=== PATIENT | female | born 1995 | race Caucasian/White ===

== ENCOUNTER 2018-04-19 13:59 | Emergency (ER) | payer OTHER ==
[2018-04-19 14:24] VITALS: TEMP 98; BMI 19.8
--- NOTE | 2018-04-19 14:25 | PDOC ---
Rapid Medical Evaluation Chief Complaint: Blood Sugar Problem Time Seen by Provider: 04/19/18 14:22 Medical Evaluation: 04/19/18 14:22 I have performed a brief in-person evaluation of this patient. The patient presents with a chief complaint of: malfunctioning diabetic pump today, attempted to give herself insulin and states machine read "no delivery", checked FS afterwards, was 433. Feels weak and nauseous, no abd pain. No h/o DKA. States she changes insertion site every 3 days, last time today Pertinent physical exam findings:Unremarkable I have ordered the following:labs/ua The patient will proceed to the ED for further evaluation Discharge Disposition - Diagnosis Weakness - Referrals - Patient Instructions - Post Discharge Activity
--- NOTE | 2018-04-19 14:42 | PDOC ---
History of Present Illness - General Chief Complaint: Blood Sugar Problem Stated Complaint: BLOOD SUGAR PROBLEM Time Seen by Provider: 04/19/18 14:22 - History of Present Illness Initial Comments: The patient is a 23F w/ a history of DM who presents for evaluation of a dysfunctional diabetic pump today and a home FS of 433. She reports that she was in class when she noticed an error message from her pump that stated that it wasn't delivering properly. She endorses associated generalized weakness, nausea, NBNB vomiting x3. Denies polydipsia or polyuria. She states that she has replacement needles at home but didn't feel as though she'd be able to drive home/make it there currently. She has Novolog in her pump. Denies fevers, recent illness, vision changes, chest pain, SOB, abdominal, or C/ D. 04/19/18 14:40 Past History - Past Medical History Allergies/Adverse Reactions: Allergies Allergy/AdvReac Type Severity Reaction Status Date / Time No Known Allergies Allergy Verified 04/19/18 14:24 Home Medications: Ambulatory Orders Insulin Aspart [Novolog] 100 unit SQ ASDIR 04/19/18 COPD: No Diabetes: Yes (IDDM) - Suicide/Smoking/Psychosocial Hx Smoking History: Never smoked Have you smoked in the past 12 months: No Information on smoking cessation initiated: No Hx Alcohol Use: No Drug/Substance Use Hx: No Review of Systems - Review of Systems Able to Perform ROS?: Yes Comments:: GENERAL/CONSTITUTIONAL: +generalized weakness; Denei fever or chills HEAD, EYES, EARS, NOSE AND THROAT: No change in vision. No ear pain or discharge. No sore throat CARDIOVASCULAR: No chest pain or shortness of breath RESPIRATORY: Denies cough, hemoptysis GASTROINTESTINAL: +nausea; Denies vomiting, diarrhea or constipation GENITOURINARY: No dysuria, frequency, or change in urination MUSCULOSKELETAL: No joint or muscle swelling or pain. No neck or back pain SKIN: No rash NEUROLOGIC: No headache, vertigo, loss of consciousness, or change in strength/ sensation ENDOCRINE: No increased thirst. No abnormal weight change HEMATOLOGIC/LYMPHATIC: No anemia, easy bleeding, or history of blood clots ALLERGIC/IMMUNOLOGIC: No hives or skin allergy 04/19/18 14:43 Is the patient limited French proficient: No *Physical Exam - Vital Signs Last Vital Signs Temp Pulse Resp BP Pulse Ox 98.0 F 87 12 130/53 L 100 04/19/18 14:21 04/19/18 14:21 04/19/18 14:21 04/19/18 14:21 04/19/18 14:21 - Physical Exam Comments: GENERAL: Awake, alert, and fully oriented, in no acute distress HEAD: No signs of trauma, normocephalic, atraumatic EYES: PERRLA, EOMI, sclera anicteric, conjunctiva clear ENT: Hearing grossly normal, nares patent, oropharynx clear without exudates. Moist mucosa LUNGS: No distress, speaks full sentences, clear to auscultation bilaterally HEART: Regular rate and rhythm, normal S1 and S2, no murmurs appreciated, peripheral pulses normal and equal bilaterally ABDOMEN: Soft, nontender, normoactive bowel sounds. No guarding, no rebound. Insulin pump in place without evidence of infection/irritation at needle insertion site EXTREMITIES : Normal inspection, Normal range of motion, no edema. No clubbing or cyanosis NEUROLOGICAL: Cranial nerves II through XII grossly intact. Normal speech, normal gait, no focal sensorimotor deficits SKIN: Warm, Dry, normal turgor, no rashes or lesions noted 04/19/18 14:43 04/19/18 18:59 Moderate Sedation - Procedure Monitoring Vital Signs: Procedure Monitoring Vital Signs Temperature 98.0 F 04/19/18 14:21 Pulse Rate 87 04/19/18 14:21 Respiratory Rate 12 04/19/18 14:21 Blood Pressure 130/53 L 04/19/18 14:21 O2 Sat by Pulse Oximetry (%) 100 04/19/18 14:21 ED Treatment Course - LABORATORY CBC & Chemistry Diagram: 04/19/18 14:33 04/19/18 14:38 Medical Decision Making - Medical Decision Making The patient is a 23F w/ a history of DM who presents for evaluation of a malfunctioning diabetic pump and home FS of 433 w/ associated weakness and nausea. Symtomatic hyperglycemia -Patient non-toxic appearing, will r/o DKA CMP, CBC, acetone, UA, UCx ordered from triage NS 1L 04/19/18 14:41 No leukocytosis No anemia 04/19/18 15:06 Insulin 8u SQ once BGM 422 04/19/18 15:10 Mild hyperkalmeia to 5.2 Hyperglycemia to 395 Acetone neg Will give additional 1L NS Other lytes wnl No NADJA LFTs wnl Will recheck BG s/p second liter of NS 04/19/18 15:57 BG 80s s/p insulin and fluids Patient feels symptoms resolved Plan for D/C w/ endo f/u Discharge instructions and return precautions given Patient in agreement and verbalized understanding Dispo: home 04/19/18 18:58 *DC/Admit/Observation/Transfer Diagnosis at time of Disposition: Weakness, Hyperglycemia - Discharge Dispostion Disposition: HOME Condition at time of disposition: Improved Decision to Admit order: No - Referrals Referrals: Carlos Flowers [Other] - Patient Instructions Additional Instructions: You were seen in the Emergency Department today for hyperglycemia. You were given fluids and insulin. Please review the handout provided at discharge. Please follow up with your textile dyer. Return to the Emergency Department if you have persistent symptoms, worsening symptoms, any new/concerning symptoms, weakness, nausea/vomiting, abdominal pain. - Post Discharge Activity
[2018-04-19] MEDS ORDERED: SODIUM CHLORIDE 0.9% 500 ML INFUS.BAG IV ONE ×2 (14:52→15:56)
[2018-04-19 14:54] LABS: BASO % 0.4 % (0-2.0); EOS % 0.3 % (0-4.5); HEMATOCRIT 38.5 % (32.4-45.2); HEMOGLOBIN 12.7 GM/dL (10.7-15.3); LYMPH % 9.6 % (8-40); MCH 29.7 pg (25.7-33.7); MEAN CELL VOLUME 90.1 fl (80-96); MEAN PLT VOLUME 8.9 fl (7.5-11.1); MONO % 4.3 % (3.8-10.2); NEUT % 85.4 % (42.8-82.8); PLATELET COUNT 245 K/MM3 (134-434); RBC 4.27 M/mm3 (3.60-5.2); RDW 12.4 % (11.6-15.6); WHITE BLOOD COUNT 10.3 K/mm3 (4.0-10.0)
[2018-04-19] MEDS ORDERED: INSULIN REGULAR HUMAN 100 UNITS/ML *VIAL SQ ONE (15:09)
[2018-04-19] MEDS ORDERED: INSULIN (NOVOLOG) ASPART 100 UNITS/ML 10ML VIAL ONE (15:15)
[2018-04-19 15:52] LABS: ALBUMIN 4.2 g/dl (3.4-5.0); ALK PHOS 44 U/L (45-117); ANION GAP 9 MMOL/L (8-16); BILIRUBIN,TOTAL 0.8 mg/dL (0.2-1); BLOOD UREA NITROGEN 17 mg/dL (7-18); CALCIUM 9.3 mg/dL (8.5-10.1); CHLORIDE 100 mmol/L (98-107); CO2 24 mmol/L (21-32); POTASSIUM 5.2 mmol/L (3.5-5.1); SGOT/AST 28 U/L (15-37); SGPT/ALT 19 U/L (13-61); SODIUM 133 mmol/L (136-145); TOT PROT 7.8 g/dl (6.4-8.2)
[2018-04-19 15:54] LABS: GLUCOSE,RANDOM 395 mg/dL (74-106)
--- NOTE | 2018-04-19 16:08 | PDOC ---
Attending Attestation - HPI HPI: This is a 23 year old female, with significant past medical history of Type I Diabetes (insulin dependent with pump), who presents to the emergency department today complaining of faulty insulin pump needle for 1 day. Patient notes she was at school an hour away when she noticed her the needle to her pump , located to the right lateral aspect of her umbilicus, was bent and no longer working. She began feeling nauseated, which prompted her to vomit 3 times. 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 The patient denies chest pain, shortness of breath, headache and dizziness. Denies fever, chills, diarrhea and constipation. Denies dysuria, frequency, urgency and hematuria. Allergies: NKA Past surgical history: None reported Social history: Confirms social EtOH use and marijuana use. Denies tobacco use. Emissions Repair Technician: Dr. Flowers 04/19/18 16:09 - Physicial Exam PE: GENERAL: The patient is in no acute distress. HEAD: Normal with no signs of trauma. EYES: PERRLA, EOMI, sclera anicteric, conjunctiva clear. ENT: Ears normal, nares patent, oropharynx clear without exudates. Moist mucous membranes. NECK: Normal range of motion, supple without lymphadenopathy, JVD, or masses. LUNGS: Breath sounds equal, clear to auscultation bilaterally. No wheezes, and no crackles. HEART:Regular rate and rhythm, normal S1 and S2 without murmur, rub or gallop. ABDOMEN: Soft, nontender, normoactive bowel sounds. No guarding, no rebound. No masses palpable. EXTREMITIES: Normal range of motion, no edema. No clubbing or cyanosis. No erythema, or tenderness. NEUROLOGICAL: Cranial nerves II through XII grossly intact. Normal speech. No focal neurological deficits. MUSCULOSKELETAL: Back non-tender to palpation, no CVA tenderness SKIN: Warm, Dry, normal turgor, no rashes or lesions noted. 04/19/18 16:09 <Marjan Grullon - Last Filed: 04/19/18 16:09> - Resident Resident Name: Fernando Stephen - ED Attending Attestation I have performed the following: I have examined & evaluated the patient, The case was reviewed & discussed with the resident, I agree w/resident's findings & plan, Exceptions are as noted - Medical Decision Making 04/19/18 16:10 Laboratory Tests 04/19/18 04/19/18 04/19/18 14:33 14:38 14:38 WBC 10.3 H Hgb 12.7 Hct 38.5 Plt Count 245 Sodium 133 L Potassium 5.2 H Chloride 100 BUN 17 Creatinine 1.0 Random Glucose 395 H* Acetone, Qual Negative L Upon re assessment, pt states that she feels better Will plan to discharge when blood glucose 200s Pt is feeling better Has no secondary signs of infection signed out to Dr Posadas Clinical Impression: hyperglycemia secondary to insulin pump dysfunction <Mariella Martinez - Last Filed: 04/21/18 19:07>
[2018-04-19 16:46] LABS: HCG,QUALITATIVE URINE Negative
[2018-04-19 17:11] LABS: URINE APPEARANCE CLEAR; URINE BILIRUBIN NEGATIVE (<2.0 mg/dL); URINE COLOR LTYELLOW; URINE GLUCOSE (UA) 3+ (NEGATIVE); URINE KETONE 1+ (NEGATIVE); URINE LEUK ESTERASE NEGATIVE (NEGATIVE); URINE NITRITE NEGATIVE (NEGATIVE); URINE PROTEIN NEGATIVE (NEGATIVE); URINE UROBILINOGEN NEGATIVE mg/dL (0.2-1.0)
[2018-04-19] MEDS ORDERED: ACETAMINOPHEN 325 MG TABLET (FP) ONE (17:21)
[2018-04-19 17:28] VITALS: BP 111/72; PULSE 76
== END 2018-04-19 17:31 | disposition home or self-care (01) ==
LOC: JER 13:59
PROC: 3E013VG Introduction of Insulin into Subcutaneous Tissue, Percutaneous Approach (ICD-10-PCS; principal; 2018-04-19)
PROC: 3E0337Z Introduction of Electrolytic and Water Balance Substance into Peripheral Vein, Percutaneous Approach (ICD-10-PCS; 2018-04-19)
DX: E11.65 Type 2 diabetes mellitus with hyperglycemia (principal); R53.1 Weakness
CPT/HCPCS: 36415; 80053; 81003; 82009; 82962; 84703; 85025; 99284-25